=== PATIENT | female | born 1995 | race Caucasian/White ===

== ENCOUNTER 2016-12-11 11:27 | Emergency (ER) | payer OTHER ==
[2016-12-11 11:32] VITALS: RESP 18
[2016-12-11] MEDS ORDERED: Apap-Butalbital-Caffeine 325-50-40mg Tab PO STA (12:01)
--- NOTE | 2016-12-11 12:22 | C.PDOC ---
History Of Present Illness 20 year old female presents to the ED with complaints of a sore throat that began three days ago. Patient notes headache for 4 days. Notes she took ibuprofen this morning with mild improvement. Denies medical problems, visual changes, n/v, difficulty swallowing, difficulty breathing, or other complaints at this time, Time Seen by Provider: 12/11/16 11:36 Chief Complaint (Nursing): ENT Problem History Per: Patient History/Exam Limitations: None Onset/Duration Of Symptoms: Days (3 days ) Current Symptoms Are (Timing): Still Present Quality (Mouth/Throat): Other (sore throat ) Anticoagulant/Antiplatlet Use?: No Past Medical History Reviewed: Historical Data, Nursing Documentation, Vital Signs Vital Signs: Last Vital Signs Temp 98.4 F 12/11/16 14:45 Pulse 88 12/11/16 14:45 Resp 18 12/11/16 14:45 BP 114/70 12/11/16 14:45 Pulse Ox 97 12/11/16 16:34 - Medical History PMH: Anxiety Family History: States: Unknown Family Hx - Social History Hx Tobacco Use: No Hx Alcohol Use: No Hx Substance Use: No - Immunization History Hx Tetanus Toxoid Vaccination: No Hx Influenza Vaccination: No Hx Pneumococcal Vaccination: No Review Of Systems Constitutional: Negative for: Fever, Chills ENT: Positive for: Throat Pain (sore throat ). Negative for: Ear Pain Respiratory: Negative for: Cough, Shortness of Breath Gastrointestinal: Negative for: Nausea, Vomiting Neurological: Positive for: Headache Physical Exam - Physical Exam Appears: Non-toxic, No Acute Distress Skin: Warm, Dry Head: Atraumatic, Normacephalic Eye(s): bilateral: Normal Inspection, PERRL, EOMI Ear(s): Bilateral: Normal Nose: Normal, No Discharge Oral Mucosa: Moist Tongue: No Swelling Lips: No Swelling Throat: Erythema (exudates bilaterally with swelling, more so in the left than the right. ), Exudate, Other (Uvula at the midline ) Neck: Normal ROM, Supple Lymphatic: Adenopathy Chest: Symmetrical, No Deformity Cardiovascular: Rhythm Regular Respiratory: Normal Breath Sounds, No Rhonchi, No Wheezing Neurological/Psych: Oriented x3, Normal Speech, Normal Cognition, Normal Cranial Nerves (2-12) ED Course And Treatment - Laboratory Results Result Diagrams: 12/11/16 13:53 12/11/16 13:53 O2 Sat by Pulse Oximetry: 97 (room air ) - CT Scan/US CT HEAD WITHOUT CONTRAST Other Rad Studies (CT/US): Read By Radiologist, Radiology Report Reviewed CT/US Interpretation: No acute intracranial pathology identified. Progress Note: Blood work was performed and patient was given fioricet,. clindamycin, decadron inj, and IV fluids. Pt requests head ct scan. Discussed risks vs benefits of CT scan, pt requests ct scan. Upon re-evaluation patient states headache has improved and she feels better. Tolerating PO. Patient has no neurologic deficit, photophobia, rash, fever, or nuchal rigidity. Discussed with patient the possibility of peritonsillar abscesses, signs of concern and instructed to follow up in two days. Disposition - Disposition Referrals: Davide Bridges MD [Staff Provider] - Disposition: HOME/ ROUTINE Disposition Time: 12:39 Condition: GOOD Additional Instructions: Follow up with primary medical doctor in 1-3 days without fail for further evaluation. Take medications as prescribed. Return to the emergency department at any time if symptoms persist or worsen. Prescriptions: Azithromycin [Zithromax] 250 mg PO DAILY #6 tab Ibuprofen [Motrin] 600 mg PO Q6 PRN #20 tab PRN Reason: Pain, Mild (1-3) Instructions: Tonsillitis (ED) Forms: [facility] ([place]) - Clinical Impression Clinical Impression: Tonsillitis, Headache - Scribe Statement The provider has reviewed the documentation as recorded by the Gennaibjayna Valentine All medical record entries made by the Scribe were at my direction and personally dictated by me. I have reviewed the chart and agree that the record accurately reflects my personal performance of the history, physical exam, medical decision making, and the department course for this patient. I have also personally directed, reviewed, and agree with the discharge instructions and disposition.
--- NOTE | 2016-12-11 12:57 | CT ---
PROCEDURE: CT HEAD WITHOUT CONTRAST. HISTORY: pain COMPARISON: None available. TECHNIQUE: Axial computed tomography images were obtained through the head/brain without intravenous contrast. Radiation dose: Total exam DLP = 730.13 mGy-cm. This CT exam was performed using one or more of the following dose reduction techniques: Automated exposure control, adjustment of the mA and/or kV according to patient size, and/or use of iterative reconstruction technique. FINDINGS: HEMORRHAGE: No intracranial hemorrhage. BRAIN: No mass effect or edema. No atrophy or chronic microvascular ischemic changes. Please note that MRI with diffusion imaging is more sensitive in the detection of acute ischemic event. VENTRICLES: No hydrocephalus. CALVARIUM: Unremarkable. PARANASAL SINUSES: Unremarkable as visualized. No significant inflammatory changes. MASTOID AIR CELLS: Unremarkable as visualized. No inflammatory changes. OTHER FINDINGS: None. IMPRESSION: No acute intracranial pathology identified.
[2016-12-11] MEDS ORDERED: Dexamethasone 4 mg/1 ml IVP STA (13:16)
[2016-12-11] MEDS ORDERED: Sodium Chloride 0.9% 1,000 ML IV ONE (13:16)
[2016-12-11] MEDS ORDERED: Clindamycin 300 MG in Sodium Chloride 0.9% 50 ML IVPB STA (13:16)
[2016-12-11] MEDS ORDERED: Dexamethasone 4 mg/1 ml ONE (13:30)
[2016-12-11 13:57] LABS: BASO % 0.2 % (0.0-2.0); HEMATOCRIT 43.8 % (34.0-47.0); LYMPH # 1.2 K/uL (1.0-4.3); LYMPH % 7.9 % (20.0-40.0); MEAN CORPUSCULAR HEMOGLOBIN 28.6 pg (27.0-31.0); MEAN CORPUSCULAR HGB CONC 33.1 g/dL (33.0-37.0); MEAN PLATELET VOLUME 8.6 fL (7.2-11.7); MONO # 1.1 K/uL (0.0-0.8); MONO % 7.4 % (0.0-10.0); PLATELET COUNT 275 K/uL (130-400); RED CELL DISTRIBUTION WIDTH 13.5 % (11.5-14.5); WHITE BLOOD COUNT 15.1 K/uL (4.8-10.8)
[2016-12-11 13:59] LABS: MEAN CELL VOLUME 86.4 fL (81.0-99.0)
[2016-12-11 14:09] LABS: ALB/GLOB RATIO 1.1 (1.0-2.1); ALKALINE PHOSPHATASE 90 U/L (38-126); ALT/SGPT 20 U/L (9-52); AST/SGOT 22 U/L (14-36); BLOOD UREA NITROGEN 11 mg/dL (7-17); CALCIUM 9.4 mg/dl (8.6-10.4); CARBON DIOXIDE 26 mmol/L (22-30); CHLORIDE 98 mmol/L (98-107); GFR AFRICAN-AMERICAN > 60; GLUCOSE,RANDOM 94 mg/dL (65-105); POTASSIUM 3.5 mmol/L (3.6-5.2); SODIUM 138 mmol/L (132-148); TOTAL PROTEIN 8.5 g/dL (6.3-8.3)
[2016-12-11 14:37] LABS: NEUTROPHIL 80 % (50-75); TOTAL CELLS COUNTED 100
[2016-12-11 14:46] VITALS: BP 114/70; PULSE 88; TEMP 98.4
[2016-12-11 16:34] VITALS: O2SAT 97
== END 2016-12-11 14:45 | disposition home or self-care (01) ==
LOC: C.ER 11:27
DX: J03.90 Acute tonsillitis, unspecified (principal); R51 Headache
CPT/HCPCS: 70450; 80053; 85025; 86308; 96365; 96375; 99284; J1100; J7040

== ENCOUNTER 2018-02-20 12:48 | Emergency (ER) | payer OTHER ==
[2018-02-20 12:56] VITALS: O2SAT 99
[2018-02-20 13:31] LABS: SQUAMOUS EPITHIAL 5 /hpf (0-5); URINE BACTERIA RARE (<OCC); URINE BILIRUBIN NEGATIVE (NEGATIVE); URINE BLOOD NEGATIVE (NEGATIVE); URINE CLARITY Clear (Clear); URINE COLOR Yellow (YELLOW); URINE GLUCOSE (UA) NORMAL (Normal); URINE LEUKOCYTE ESTERASE 2+ Leu/uL (Negative); URINE PROTEIN NEGATIVE (NEGATIVE); URINE UROBILINOGEN NORMAL mg/dL (0.2-1.0)
[2018-02-20] MEDS ORDERED: cefTRIAXone (Rocephin) 250 mg Inj IM STA (14:47)
--- NOTE | 2018-02-20 14:48 | C.PDOC ---
History Of Present Illness 22 year old female presents to the ED complaining of pelvic/back pain that has been ongoing for the past week but has worsened since yesterday. The patient denies any fever, dysuria or possible . Her last LMP was on 01/21. She reports frequent, "yellowish" discharge. The patient was seen last week at a hospital in which she had an ultrasound done but no blood work. The ultrasound came back negative for cysts. She was advised to follow up with an OBGYN but has not yet done so. The patient states she is sexually active with one partner (male). Time Seen by Provider: 02/20/18 13:42 Chief Complaint (Nursing): Abdominal Pain History Per: Patient History/Exam Limitations: no limitations Onset/Duration Of Symptoms: Days Current Symptoms Are (Timing): Still Present Location Of Pain/Discomfort: Other (pelvic) Radiation Of Pain To:: Back Quality Of Discomfort: Cramping, "Pain" Associated Symptoms: Back Pain. denies: Fever Recent travel outside of the [place]: No Past Medical History Reviewed: Historical Data, Nursing Documentation, Vital Signs Vital Signs: Last Vital Signs Temp 98.3 F 02/20/18 12:53 Pulse 85 02/20/18 12:53 Resp 19 02/20/18 12:53 BP 127/81 02/20/18 12:53 Pulse Ox 99 02/20/18 12:53 - Medical History PMH: Anxiety Other PMH: Heart murmur Surgical History: No Surg Hx Family History: States: Unknown Family Hx - Social History Hx Tobacco Use: No Hx Alcohol Use: Yes Hx Substance Use: No - Immunization History Hx Tetanus Toxoid Vaccination: No Hx Influenza Vaccination: No Hx Pneumococcal Vaccination: No Review Of Systems Except As Marked, All Systems Reviewed And Found Negative. Constitutional: Negative for: Fever Genitourinary: Positive for: Vaginal Bleeding, Pelvic Pain. Negative for: Dysuria, Vaginal Discharge Musculoskeletal: Positive for: Back Pain Physical Exam - Physical Exam Additional Physical Exam Comments: Constitutional: No acute distress. Head: Normocephalic. Atraumatic. Eyes: PERRL. ENT: Moist mucous membranes. Neck: Supple. Cardiovascular: Regular rate. Radial pulse 2+ bilaterally. Chest: No tenderness. Respiratory: Clear to auscultation bilaterally. GI: Soft. Nontender. Nondistended. Back: No CVA tenderness. Musculoskeletal: No tenderness or swelling of extremities. Skin: No rash. Neurologic: Alert, no focal deficit. Pelvic: No CMT. No erythema. Thin white/yellow discharge around cervix. ED Course And Treatment O2 Sat by Pulse Oximetry: 99 (RA) Pulse Ox Interpretation: Normal Medical Decision Making Medical Decision Making: Impression: 22 y/o female with pelvic/back pain and frequent, thin, white/yellow discharge Plan: -Chlamydia/GC -Rocephin 250 mg -Zithromax 1000 mg PO -Urine culture -UA Treated empircally for CG/Chlamydia and sample sent. Instructed to f/u with OBGYN, return to ED for worsening pain, fever, vomiting, dyspnea, or any other problem. Disposition - Disposition Disposition: HOME/ ROUTINE Disposition Time: 14:48 Condition: STABLE Instructions: Vaginal Discharge in Adults Forms: [facility] ([place]) - Clinical Impression Clinical Impression: Cervicitis - Scribe Statement The provider has reviewed the documentation as recorded by the Scribe (Laila Alex) Provider Attestation: All medical record entries made by the Scribe were at my direction and personally dictated by me. I have reviewed the chart and agree that the record accurately reflects my personal performance of the history, physical exam, medical decision making, and the department course for this patient. I have also personally directed, reviewed, and agree with the discharge instructions and disposition.
[2018-02-20 15:12] VITALS: BP 125/80; PULSE 84; RESP 17; TEMP 98.2
== END 2018-02-20 15:10 | disposition home or self-care (01) ==
LOC: C.ER 12:48
DX: N72 Inflammatory disease of cervix uteri (principal)
CPT/HCPCS: 81001; 87086; 87491; 87591; 96372; 99284; J0696